=== PATIENT | male | born 1980 | race Caucasian/White ===

== ENCOUNTER 2018-02-04 18:18 | Emergency (ER) | payer SELFPAY ==
--- NOTE | 2018-02-04 18:36 | PDOC ---
Rapid Medical Evaluation Chief Complaint: Pain Time Seen by Provider: 02/04/18 18:34 Medical Evaluation: Allergies Allergy/AdvReac Type Severity Reaction Status Date / Time No Known Allergies Allergy Verified 02/04/18 18:31 02/04/18 18:34 The patient presents with a chief complaint of: left wrist and hand swelling with pain from unknown reason. I have performed a brief in-person evaluation of this patient; Pertinent physical exam findings: ambulatory, in no respiratory distress I have ordered the following: left hand/wrist xray The patient will proceed to the ED for further evaluation.
[2018-02-04 18:37] VITALS: BP 125/96; PULSE 100; TEMP 98.2; BMI 27.4
--- NOTE | 2018-02-04 19:56 | PDOC ---
History of Present Illness - General Chief Complaint: Pain Stated Complaint: PAIN Time Seen by Provider: 02/04/18 18:34 Past History - Past Medical History Allergies/Adverse Reactions: Allergies Allergy/AdvReac Type Severity Reaction Status Date / Time No Known Allergies Allergy Verified 02/04/18 18:31 Home Medications: Ambulatory Orders Ibuprofen 800 mg PO TID #30 tablet 02/04/18 COPD: No - Immunization History Immunization Up to Date: Yes - Suicide/Smoking/Psychosocial Hx Smoking History: Never smoked Hx Alcohol Use: No Drug/Substance Use Hx: No *Physical Exam - Vital Signs Last Vital Signs Temp Pulse Resp BP Pulse Ox 98.2 F 100 H 18 125/96 98 02/04/18 18:32 02/04/18 18:32 02/04/18 18:32 02/04/18 18:32 02/04/18 18:32 ED Treatment Course - LABORATORY CBC & Chemistry Diagram: 02/04/18 20:30 *DC/Admit/Observation/Transfer Diagnosis at time of Disposition: Hand pain, left - Discharge Dispostion Disposition: HOME Condition at time of disposition: Stable Admit: No - Referrals Referrals: Osorio Del Angel MD [Staff Physician] - Christo Queen MD [Staff Physician] - - Patient Instructions Printed Discharge Instructions: DI for Hand Pain Additional Instructions: Your x-ray today showed swelling over the hand but no fractures. Your blood work was normal. It did not show evidence of gout. Please ice your hand for 20 minute intervals at least 5 times a day for the next 2 days. Keep the hand elevated when resting. Please take Motrin 800 mg every 8 hours for pain and swelling. Prescription has been sent. Please follow-up the primary care doctor listed Dr. Del Angel. Please also follow-up with orthopedics Dr. Queen. Return to emergency department if her pain gets worse if you feel numbness and tingling in the hand, if the swelling gets worse, or if you have any changes in your symptoms. - Post Discharge Activity Forms/Work/School Notes: Back to Work
[2018-02-04] MEDS ORDERED: KETOROLAC TROMETHAMINE 30 MG/1 ML VIAL IM ONE (20:21)
[2018-02-04] MEDS ORDERED: KETOROLAC TROMETHAMINE 30 MG/1 ML VIAL ONE (20:34)
[2018-02-04 20:38] LABS: BASO % 0.9 % (0-2.0); EOS % 3.9 % (0-4.5); HEMATOCRIT 41.8 % (35.4-49); HEMOGLOBIN 14.3 GM/dL (11.7-16.9); LYMPH % 17.7 % (8-40); MCH 28.1 pg (25.7-33.7); MCHC 34.3 g/dl (32.0-35.9); MEAN PLT VOLUME 8.1 fl (7.5-11.1); NEUT % 72.5 % (42.8-82.8); PLATELET COUNT 353 K/MM3 (134-434); WHITE BLOOD COUNT 9.5 K/mm3 (4.0-10.0)
== END 2018-02-04 21:36 | disposition home or self-care (01) ==
LOC: JERFT 18:18
PROC: 3E0233Z Introduction of Anti-inflammatory into Muscle, Percutaneous Approach (ICD-10-PCS; principal; 2018-02-04)
DX: M79.642 Pain in left hand (principal)
CPT/HCPCS: 36415; 73130-TC-LR-FY; 84550; 85025; 99281-25